=== PATIENT | male | born 1990 | race African-American/Black ===

== ENCOUNTER 2016-06-29 23:40 | Emergency (ER) | payer OTHER ==
[~2016-06-29 23:40] MED LIST: AMOXICILLIN875 MG PO; BENZONATATE; NO MEDICATIONS
== END 2016-06-30 01:04 | disposition home or self-care (01) ==
LOC: SED 23:40
DX: H11.421 Conjunctival edema, right eye (principal); F17.210 Nicotine dependence, cigarettes, uncomplicated
CPT/HCPCS: 99283